=== PATIENT | male | born 1990 | race Caucasian/White ===

== ENCOUNTER 2017-07-27 11:21 | Emergency (ER) | payer OTHER ==
[~2017-07-27] VITALS: Ht 182.9 cm; Wt 88.5 kg
[2017-07-27 12:23] VITALS: BP 122/84
== END 2017-07-27 12:50 | disposition home or self-care (01) ==
LOC: ER 11:21
DX: S39.012A Strain of muscle, fascia and tendon of lower back, initial encounter (principal); X50.0XXA Overexertion from strenuous movement or load, initial encounter; Y93.66 Activity, soccer; Y99.8 Other external cause status; Y92.89 Other specified places as the place of occurrence of the external cause

== ENCOUNTER 2017-07-29 10:50 | Emergency (ER) | payer OTHER ==
[~2017-07-29] VITALS: Ht 182.9 cm; Wt 88.5 kg
[2017-07-29 10:59] VITALS: BP 139/78
== END 2017-07-29 12:58 | disposition home or self-care (01) ==
LOC: ER 10:50
DX: R21 Rash and other nonspecific skin eruption (principal); G89.29 Other chronic pain; M54.5 Low back pain